=== PATIENT | female | born 1960 ===

== ENCOUNTER → 2023-01-26 11:12 | Outpatient (BNVA) | payer OTHER, SELFPAY | PROVIDERS: Visit Provider Internal Medicine Rheumatology | DX: M19.90 Unspecified osteoarthritis, unspecified site (principal); M45.6 Ankylosing spondylitis lumbar region; Z79.899 Other long term (current) drug therapy; Z11.59 Encounter for screening for other viral diseases; M19.042 Primary osteoarthritis, left hand | CPT/HCPCS: 72100; 72202; 73130; 73630; 80076; 82306; 82565; 83520; 85007; 85025; 86704; 86803; 86812; 87340 ==